=== PATIENT | male | born 1980 | race African-American/Black ===

== ENCOUNTER 2019-11-11 11:19 | Emergency (ER) | payer BC, SELFPAY ==
[2019-11-11] MEDS ORDERED: Ibuprofen 800 MG TAB ONE (11:58)
[2019-11-11] MEDS ORDERED: Acetaminophen 500 MG TAB ONE ×2 (11:58)
--- NOTE | 2019-11-11 12:12 | RAD ---
EXAM: 3 views of the left foot HISTORY: Foot pain COMPARISON: None FINDINGS: 3 views of the left foot shows no evidence of acute fracture or dislocation. No soft tissue swelling is seen. No degenerative changes are present. IMPRESSION: No evidence of acute osseous abnormality.
--- NOTE | 2019-11-11 12:12 | RAD ---
EXAM: 3 views of the left ankle HISTORY: Ankle pain COMPARISON: None FINDINGS: 3 views of the left ankle shows no evidence of acute fracture or dislocation. Mild lateral soft tissue swelling is seen. No degenerative changes are present. IMPRESSION: No evidence of acute osseous abnormality.
== END 2019-11-11 12:53 | disposition home or self-care (01) ==
LOC: ERS 11:19
DX: M79.672 Pain in left foot (principal); X58.XXXA Exposure to other specified factors, initial encounter; Y93.67 Activity, basketball